=== PATIENT | male | born 1960 | race Hispanic/Latino ===

== ENCOUNTER 2021-07-24 06:28 | Day surgery (SDC) | payer OTHER ==
[2021-07-24] MEDS ORDERED: SODIUM CHLORIDE 0.9% 500 ML 500 ML IV SCH (07:00)
[2021-07-24 07:13] LABS: Basophils % (Auto) 0.8 % (0.0-1.8); Eosinophils # (Auto) 0.1 K/mm3 (0.0-0.4); Eosinophils % (Auto) 2.7 % (0.0-4.3); Hematocrit 47.7 % (35.5-45.6); Hemoglobin 16.5 gm/dl (11.8-15.2); Lymphocytes # (Auto) 0.9 K/mm3 (1.2-5.4); Mean Corpuscular HGB Conc 35 % (32-34); Mean Corpuscular Volume 87 fl (84-94); Monocytes # (Auto) 0.4 K/mm3 (0.0-0.8); Monocytes % (Auto) 8.6 % (0.0-7.3); Platelet Count 167 K/mm3 (140-440); Red Blood Count 5.46 M/mm3 (3.65-5.03)
[2021-07-24 07:23] LABS: INR 1.27 (0.87-1.13)
[2021-07-24 07:24] LABS: Partial Thromboplastin Time 34.3 Sec. (24.2-36.6)
[2021-07-24 08:01] LABS: BUN/Creatinine Ratio 11; Blood Urea Nitrogen 13 mg/dL (9-20); Calcium 9.7 mg/dL (8.4-10.2); Hemolysis Index 6
[2021-07-24] MEDS ORDERED: HEPARIN/NS 5000 UNIT/500ML 1,000 ML IR ONE (08:21)
[2021-07-24] MEDS ORDERED: ceFAZolin/Water 2 GM/20 ML 2 GM/20 ML SYRINGE IV ONE (08:24)
[2021-07-24] MEDS: LIDOCAINE (2%) 20 MG/1 ML VIAL 50 ML MDV INFILTRATI ONE ×3 (08:43→09:18)
[2021-07-24] MEDS: MIDAZOLAM 2 MG/2 ML INJ ONE ×3 (08:43→10:25)
[2021-07-24] MEDS: fentaNYL 100 MCG/2 ML INJ ONE ×3 (08:43→10:25)
[2021-07-24] MEDS: HEPARIN 10,000 UNITS/10 ML VIAL ONE ×2 (08:44→09:16)
[2021-07-24] MEDS ORDERED: ALTEPLASE 2 MG INJ ONE ×2 (10:14→10:16)
[2021-07-24] MEDS ORDERED: WATER FOR INJ Sterile (PF) 10 ML ONE (10:15)
[2021-07-24] MEDS ORDERED: HEPARIN/NS 5000 UNIT/500ML 500 ML IR ONE (10:35)
--- NOTE | 2021-07-24 11:38 | Short Stay Summary ---
Short Stay Documentation Date of service: 07/24/21 - History Principal diagnosis: Extensive left leg DVT H&P: obtained from office - Allergies and Medications Current Medications: Allergies No Known Allergies Allergy (Verified 07/24/21 06:52) Home Medications Medication Instructions Recorded Confirmed Last Taken Type Rivaroxaban [Xarelto] 20 mg PO DAILY 07/24/21 07/24/21 07/23/21 History 20 MG Active Medications Sodium Chloride (Nacl 0.9% 500 Ml) 500 mls @ 50 mls/hr IV DIRECT CHEN Stop: 07/24/21 20:00 Last Admin: 07/24/21 08:03 Dose: 50 mls/hr - Brief post op/procedure progress note Date of procedure: 07/24/21 Pre-op diagnosis: Left leg DVT Post-op diagnosis: same Procedure: IVC filter insertion, left leg thrombectomy Anesthesia: local Surgeon: NESTOR PRAKASH Estimated blood loss: minimal Pathology: none Condition: stable - Disposition Condition at discharge: Good Disposition: 01 HOME / SELF CARE / HOMELESS Short Stay Discharge Plan Activity: advance as tolerated Weight Bearing Status: Weight Bear as Tolerated Diet: regular Wound: keep clean and dry, per your surgeon's advice Follow up with: PRIMARY CAREMD [Primary Care Provider] - 7 Days
--- NOTE | 2021-07-24 11:54 | Operative Report ---
Operative Report Operative Report: Exam: Ultrasound fluoroscopic guided placement of infrarenal IVC filter, left lower extremity venogram, left lower extremity thrombectomy with venoplasty and stent placement Clinical indication: Patient with a history of deep venous intervention with prior stent placement 2 years prior to presentation with extensive DVT following COVID-19. Patient was placed on anticoagulation with only minimal resolution of his symptoms at an outside institution. Ultrasound demonstrates extensive left leg DVT. Date: 07/24/2021 Procedure: Following an explanation of the risk, benefits and alternatives; written informed consent was obtained. The patient was brought to the angiographic suite and placed in supine position on the examination table. Initial ultrasound evaluation of his right groin demonstrated a patent right common femoral vein. The patient's right groin was prepped and draped in the usual sterile fashion. 1% lidocaine was used for anesthesia. Under ultrasound guidance, the right common femoral vein was cannulated with a 7 cm 18-gauge needle. A 0.035 guidewire was advanced centrally. The needle was removed and a 5 Somali sheath placed. Contrast was injected through the 5 Somali sheath which demonstrates the right common femoral vein, external iliac vein and common iliac vein are widely patent. The IVC is patent. The level of the lowest renal veins are identified and appropriate size criteria is met. Following serial dilation, an 11 Somali IVC filter introducer sheath and trocar were advanced into the IVC. An Bard Garland IVC filter was deployed with the tip of the filter at the inferior endplate of L2. Post placement imaging demonstrated satisfactory positioning with no significant tilt. The introducer sheath was exchanged for an 8 Somali sheath and an Omni Flush catheter advanced over the guidewire. The guidewire and catheter were used to cross the bifurcation. Contrast was injected which demonstrates thrombus extending on the left from the external iliac vein distally. The common iliac vein and internal iliac vein appear patent. Attempts to cross the occluded external iliac vein from above were unsuccessful. The patient's left groin was prepped and draped in usual sterile fashion. Additional lidocaine was used for anesthesia. Under ultrasound guidance, a 7 cm 18-gauge needle was advanced into the common femoral vein on the left however would not pass secondary to extensive thrombus. Decision was made therefore to abandon this approach and attempt a popliteal approach. I the patient was placed in prone position. His left popliteal fossa was prepped and draped in the usual sterile fashion. Ultrasound was used to identify the popliteal vein with extensive collateral formation in the leg. 1% lidocaine was used for anesthesia. An 18-gauge needle was advanced into the popliteal vein. A 0.035 guidewire was advanced proximally. The needle was removed and the outer portion of a micro sheath placed. Contrast was injected. This demonstrates significant collateral formation in the leg with nonvisualization of the femoral vein. The collaterals extend to the common femoral vein. The guidewire was reinserted and the micro sheath dilator removed and a 5 Somali sheath placed. A vertebral catheter and 0.035 guidewire were then manipulated through the collaterals into the common femoral vein. Once there, contrast was injected which demonstrates that the common femoral vein is stenotic with abrupt truncation in the mid common femoral vein with thrombus. The vertebral catheter and guidewire were then advanced through the thrombosed common femoral vein, external iliac vein into the IVC. Contrast was injected which demonstrated true luminal positioning. The 0.035 guidewire was exchanged for a 0.018 guidewire and pullback venography was performed to demonstrate the extent of the thrombus in the external and common femoral veins. A total of 8 mg of TPA was then infused throughout the thrombus from proximal to distal and allowed to dwell for 7 to 8 minutes. Balloon maceration of the thrombus was then performed using a 12 mm x 40 mm balloon throughout the length of the visualized thrombus. Following this, thrombectomy was then performed using a 12 Somali penumbra catheter. A total of 3 passes were made with approximately 160 mL of thrombus and blood aspirated. Post intervention imaging demonstrated significantly improved flow extending from the sheath insertion site in the popliteal fossa and the IVC with a lumen extending through the previously occluded external and common femoral veins. At this point, decision was made to realign the previously placed stent. Intravascular ultrasound was advanced through the sheath for measurements and the previously placed stent appears to be 18 mm in diameter. 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 A 16 mm x 120 mm Opry stent was advanced and deployed in the external iliac vein extending from the common to the external iliac vein on the left. A 14 mm x 120 mm was deployed to extend from the external iliac vein to the common femoral vein. The stent was seated using a 14 mm x 40 mm balloon throughout the length of the stent. Post intervention imaging demonstrated brisk flow throughout the mashpee system. At this point, the catheters, guidewires and sheaths were removed and hemostasis achieved in the popliteal fossa and groins using manual compression. Sterile dressings were applied. The patient tolerated the procedure well. There were no immediate post procedure complications. Conscious sedation was performed under the guidance of radiologic nursing. Continuous cardiopulmonary monitoring was utilized. Impression: 1) Ultrasound and fluoroscopic guided placement of infrarenal IVC filter. 2) Left lower extremity venography demonstrating thrombus extending from the common femoral vein to the external iliac vein on the left. 3) Thrombectomy as described. 4) Intravascular ultrasound of the left common femoral vein, left external iliac vein, left common iliac vein and IVC. 5) Treatment of the persistent stenosis in the external iliac vein using a 16 mm x 120 mm stent, treatment of the persistent stenosis within the common femoral vein using a 14 mm x 120 mm stent. Post intervention imaging demonstrated significantly improved luminal flow.
[2021-07-24 13:23] VITALS: BP 144/84
== END 2021-07-24 13:45 | disposition home or self-care (01) ==
LOC: CATHLABREC 06:28
PROVIDERS: ATTEND Radiology Diagnostic Radiology
DX: I87.1 Compression of vein (principal); Z86.718 Personal history of other venous thrombosis and embolism; Z79.899 Other long term (current) drug therapy; Z98.890 Other specified postprocedural states
CPT/HCPCS: 36415; 37187; 37191; 37238; 37239; 37252; 37253; 75820; 80048; 85025; 85610; 85730; 99156; 99157; C1725; C1753; C1769; C1876; C1880; C1887; C1894; J0690; J1644; J2250; J2997; J3010; J3490; J7040; Q9967